=== PATIENT | female | born 1960 | race African-American/Black ===

== ENCOUNTER 2020-10-21 12:49 | Inpatient (IN) | payer OTHER, SELFPAY ==
[2020-10-21] VITALS (35 sets, daily range): BP systolic 107–132; BP diastolic 64–97; PULSE 71–97; RESP 15–37; TEMP 36.3–38.8; O2SAT 88–98; BMI 33.0
--- NOTE | ~2020-10-21 | CT_ITS ---
EXAMINATION: CTA chest PE protocol DATE: 10/21/2020 15:10 INDICATION: Shortness of breath, COVID 19 TECHNIQUE: Computed tomography angiography (CTA) of the chest was performed with 100 mL Omnipaque-350 intravenous contrast timed to evaluate the pulmonary arteries. Coronal maximum intensity projection 3D-reconstructions were created by the technologist. The dose-length product (DLP) was 710.56 mGy-cm. Automated exposure control and iterative reconstruction technique were employed. COMPARISON: None. FINDINGS: The pulmonary arteries are well-opacified. No pulmonary embolism is identified. There are w idespread groundglass opacities. No pleural effusion or pneumothorax is identified. There is mediasti nal and bilateral hilar lymphadenopathy. The heart size is normal. There is a partially imaged 1.3 cm cyst of the right kidney. There is moderate thoracic spondylosis. IMPRESSION: 1. CT findings consistent with COVID 19 pneumonia. 2. Mediastinal and bilateral hilar lymphadenopathy, likely reactive. 3. No pulmonary embolus. Reviewed, dictated and finalized at location A. MACHINIST
--- NOTE | ~2020-10-21 | XR_ITS ---
EXAMINATION: XR chest 1V portable EXAM DATE: 10/21/2020 13:40 INDICATION: COVID 19 positive. Low oxygen saturation. TECHNIQUE: Portable AP frontal chest x-ray was obtained. There is no prior study for comparison. FINDINGS: There is moderate amount of ill-defined airspace disease suspected, probably groundglass de nsity without dense confluent consolidation. Nonspecific but would be consistent with COVID pneumonia . Cardiomediastinal silhouette is normal. There is no pneumothorax suspected. There are no pleural effu sions. There are no osseous abnormalities identified. IMPRESSION: Moderate amount of ill-defined ground glass opacity, could be COVID pneumonia. Edema or other viral infectious process also possible. Reviewed, dictated and finalized at location A. OR QA ANALYST IMPRESSION: Moderate amount of ill-defined ground glass opacity, could be COVI D pneumonia. Edema or other viral infectious process also possible.
--- NOTE | 2020-10-21 13:07 | ECG_ITS ---
Measurements Intervals [place]ia Rate: 81 P: 45 MO: 158 QRS: 2 QRSD: 94 T: 37 QT: 345 QTc: 402 Interpretive Statements SINUS RHYTHM INCOMPLETE RIGHT BUNDLE BRANCH BLOCK BASELINE WANDER- V4 BORDERLINE ECG Electronically Signed On 10-21-2020 15:06:21 MILITARY TECHNICIAN by Deejay Delarosa D.O.
[2020-10-21 13:25] LABS: Alveolar/Arterial O2 Gradient 61.2 mmHg; Base Excess ABG 0.7 mEq/l (+/-2.0); Carboxyhemoglobin 1.1 % THb (0-2.0); Device ROOM AIR; Fractional Inspired Oxygen 21 %; HCO3 ABG 23.2 mEq/l (22.0-26.0); Methemoglobin ABG 0.2 %THb (0-1.5); Modified Allen's Test Pass; Oxygen Saturation ABG 89.1 % (95.0-100.0); PCO2 ABG 31.5 mmHg (35.0-45.0); PO2 ABG 50.8 mmHg (80.0-100.0); PO2 FiO2 Ratio Arterial Blood 2.42 %; Reduced Hemoglobin 12.7 %THb (0-5.0); Site Drawn RIGHT RADIAL; Total Hemoglobin 14.9 g/dL (12.0-18.0); pH ABG 7.485 (7.350-7.450)
[2020-10-21 13:27] LABS: Basophils Percent Auto 0.2 % (0.2-1.2); Hematocrit 44.6 % (37.0-47.0); Hemoglobin 14.6 g/dL (12.0-15.0); Immature Granulocyte Absolute 0.02 K/mm3 (0.00-0.031); Immature Granulocyte Percent A 0.5 % (0-0.5); Lymphocytes Absolute Auto 0.64 K/mm3 (0.9-3.2); Lymphocytes Percent Auto 14.6 % (18.3-44.2); Mean Corpuscular HGB Conc 32.7 g/dl (32-36); Mean Corpuscular Hemoglobin 28.1 pg (26-34); Mean Corpuscular Volume 85.9 fl (80-100); Monocytes Absolute Auto 0.2 K/mm3 (0.1-0.6); Monocytes Percent Auto 3.4 % (2.6-8.5); Neutrophils Absolute Auto 3.6 K/mm3 (1.3-6.7); Neutrophils Percent Auto 81.3 % (45.5-73.1); Platelet Count Result 228 k/mm3 (150-375); Red Blood Count 5.19 M/mm3 (4.2-5.4); Red Cell Distribution Width 14.1 % (11.5-14.5); White Blood Count 4.4 K/mm3 (4.5-10.0)
[2020-10-21 13:41] LABS: Alanine Aminotransferase 20 U/L (4-35); Albumin Level 3.4 g/dL (3.5-5.1); Alkaline Phosphatase 114 U/L (38-126); Anion Gap 5 mmol/L (8-16); Aspartate Amino Transferase 60 U/L (14-36); Bilirubin,Total 0.7 mg/dL (0.2-1.3); Blood Urea Nitrogen 16 mg/dL (7-17); Calcium 7.9 mg/dL (8.4-10.2); Carbon Dioxide 28 mmol/L (22-30); Chloride 106 mmol/L (98-107); Estimated CRCL calculation 94 ml/min; Estimated Glomerular Filt Rate > 60; Glucose 147 mg/dL (65-105); Potassium 3.8 mmol/L (3.4-5.0); Sodium 139 mmol/L (137-145)
[2020-10-21 13:42] LABS: D Dimer 1.42 ug/mL (<0.48)
[2020-10-21 13:52] LABS: Troponin I < 0.012 ng/mL (0.000-0.034)
--- NOTE | 2020-10-21 14:39 | ED.GENADULT ---
HPI - General Adult General Chief complaint: Weakness <Yunior Worthington PA-C - Last Filed: 10/21/20 16:09> Stated complaint: covid +, not getting better , weak <Yunior Worthington PA-C - Last Filed: 10/21/20 16:09> Time Seen by Provider: 10/21/20 12:54 <Yunior Worthington PA-C - Last Filed: 10/21/20 16:09> Source: patient <CITLALLI Tee Last Filed: 10/21/20 16:09> Mode of arrival: ambulatory <CITLALLI Tee Last Filed: 10/21/20 16:09> Limitations: no limitations <CITLALLI Tee Last Filed: 10/21/20 16:09> History of Present Illness HPI narrative: Patient presents with chief complaint of not feeling right over the past 2 to 3 days. Patient states that she has noticed some dizziness and fatigue. She denies chest pain or shortness of breath. She reports she has been exposed to Covid by a friend 2 weeks ago but has never been tested herself. She denies any fevers, chills, nausea, vomiting, diarrhea, abdominal pain, shortness of breath or chest pain. Patient is a smoker but denies COPD diagnosis. Patient states she has been able to eat and drink. She denies loss of taste or smell to her knowledge. <Yunior Worthington PA-C - Last Filed: 10/21/20 16:09> Related Data Home medications: Home Medications Medication Instructions Recorded Confirmed No Home Medications 10/21/20 10/21/20 <Yunior Worthington PA-C - Last Filed: 10/21/20 16:09> Allergies/adverse reactions: Allergies Allergy/AdvReac Type Severity Reaction Status Date / Time No Known Allergies Allergy Verified 10/21/20 17:53 <CITLALLI Tee Last Filed: 10/21/20 16:09> Review of Systems Review of Systems: Narrative: CONSTITUTIONAL: Reports fatigue denies fever, chills, or sweats. EYES: Denies visual changes, redness, or discharge. ENT: Denies rhinorrhea, congestion, sore throat, or otalgia. CARDIOVASCULAR: Denies chest pain, palpitations, or edema. RESPIRATORY: Denies cough or dyspnea. GASTROINTESTINAL: Denies abdominal pain, nausea, vomiting, or diarrhea. GENITOURINARY: Denies dysuria or hematuria. SKIN: Denies rash or itching. MUSCULOSKELETAL: Denies back pain, joint pain, or myalgia. NEUROLOGIC: Occasional dizziness denies headache, numbness, or weakness. PSYCHIATRIC: Denies anxiety or depression. <Yunior Worthington PA-C - Last Filed: 10/21/20 16:09> [facility] Family History Family History: Family History Sibling Diabetes mellitus Mother Diabetes mellitus <Yunior Worthington PA-C - Last Filed: 10/21/20 16:09> Social History Social History: Social History Smoking status: Former smoker Tobacco type: cigarettes Alcohol intake: never Substance use: never Gender identity (if verbalized by the patient): Female Sexual Orientation (if Verbalized by the Patient): Straight or Heterosexual Spiritual care concerns: Yes <Yunior Worthington PA-C - Last Filed: 10/21/20 16:09> Exam Narrative: Exam Narrative: GENERAL: Well-appearing, well-nourished, and in no acute distress. HEAD: Normocephalic, atraumatic. EYES: PERRLA and EOMI. NECK: Supple. ROM intact. CHEST: Decreased breath sounds bilateral lower bases. No respiratory distress. No wheezes rales or rhonchi. Oxygen saturation between 88 and 92% on room air. HEART: Regular rate and rhythm. No murmur heard. Normal peripheral pulses. ABDOMEN: Soft, nontender, nondistended, normal active bowel sounds. EXTREMITIES: Normal range of motion. No edema. No calf swelling, erythema, tightness. SKIN: Warm, dry, no rash. NEURO: No focal deficits. Alert and oriented x3. PSYCH: Normal mood and affect. <Yunior Worthington PA-C - Last Filed: 10/21/20 16:09> Course PLUG SHAPER HAND/PA Physician Supervision For this patient encounter, I reviewed the PLUG SHAPER HAND or PA documentation, treatment plan, and medical decision making; and I had [id number] time with this patient. Patient presente
--- NOTE | 2020-10-21 17:37 | ADMGEN ---
This patient, Betina Mai, was admitted to [facility] Surg Room 310-01. Patient/family oriented to hospital policies and general routines including ID bracelet, bed and alarms, visiting hours, pain management, procedures, bathroom and other care routines, personal items, smoking policy, room service/diet, and visiting hours. Information on how to activate the Rapid Response Team has been discussed. Patient/Family are encouraged to report perceived risks to care and to ask questions if they do not understand what they are told or what they should do.
--- NOTE | 2020-10-21 20:15 | PM.IMHP ---
H&P: HPI History of Present Illness Date/Time: 10/21/20 20:15 Chief Complaint: Generalized weakness. Narrative: This is a previously healthy 59-year-old female smoker who presented to the emergency department earlier today via private vehicle from home at the encouragement of her sons for evaluation of generalized weakness. She is not a great historian and is quite vague regarding her symptoms and the timeline in which she has not felt well. From what I can gather she has not been feeling well for at least 2 to 3 days however the triage nurse was told that she has had ?COVID symptoms? for the past 10 days. Apparently the patient's friend had COVID 2 weeks ago and she was exposed to him on multiple occasions while he was sick. In any regard she just has not been feeling well with generalized weakness, body aches, fatigue, decreased appetite, and decrease in taste. She also reports subjective fever and has been having sweats. Because she has ?continued to lay around? her son's made her come in for evaluation. She denies headache, sinus congestion, otalgia, odynophagia, chest pain, significant cough, shortness of breath, nausea, vomiting, and diarrhea. Review of Systems Review of Systems: Narrative: Twelve systems were reviewed with pertinent positives and negatives as per HPI. Except as documented, all other systems were reviewed and are negative. [facility] Past Medical History Medical History (Updated 10/21/20 @ 23:18 by Karol Marcelnio PA-C) Nicotine dependence Surgical History Surgical History (Updated 10/21/20 @ 23:14 by Karol Marcelino PA-C) History of tubal ligation Family History Family History Sibling Diabetes mellitus Mother Diabetes mellitus Social History Social History (Updated 10/21/20 @ 23:15 by Karol Marcelino PA-C) Social History: Surrogate decision maker: Martin Jones, zoya. Code status: Full code. Smoking packs per day: 0.5 Smoking cigarettes per day: 10.0 Smoking status: Current every day smoker Tobacco type: cigarettes Alcohol intake: never Substance use: never Additional living arrangements comments: The patient lives in [place]. Additional occupation/education comments: Currently laid off from [employer]. Gender identity (if verbalized by the patient): Female Sexual Orientation (if Verbalized by the Patient): Straight or Heterosexual Spiritual care concerns: Yes Meds Home Medications and Allergies Home Medications Medication Instructions Recorded Confirmed Type No Home Medications 10/21/20 10/21/20 History Allergies Allergy/AdvReac Type Severity Reaction Status Date / Time No Known Allergies Allergy Verified 10/21/20 17:53 Vital Signs Vital Signs - 24 hr 10/21/20 13:01 10/21/20 13:03 10/21/20 13:15 Temperature 97.4 F L Pulse Rate 85 96 89 Respiratory Rate 28 H 17 28 H Blood Pressure 122/75 Pulse Oximetry 90 88 L 90 Exam Narrative: Exam Narrative: General: Mildly ill-appearing female in the semi-Liu position in bed in no distress. Weight: 113.5 kilograms. BMI: 33.0. HEENT: PERRL, EOMI. Sclerae anicteric. Tacky mucous membranes. Neck: Supple. Respiratory: She is speaking in full sentences. Respirations are even and nonlabored. Bilateral coarse, scattered rhonchi. Cardiovascular: Regular rate and rhythm with S1-S2. Gastrointestinal: Abdomen is soft, nontender, and nondistended with positive bowel sounds. Skin: Warm and dry. No rash or lesions on limited exam. Extremities: No cyanosis, clubbing, or edema. Radial and pedal pulses intact. Neurological: Alert. Cranial nerves 2-12 are grossly intact. No gross focal deficits to casual conversation. Psychiatric: Normal mood and flat affect. H&P: Results Labs Labs: Short CBC 10/21/20 Range/Units 13:20 WBC 4.4 L (4.5-10.0) K/mm3 Hgb 14.6 (12.0-15.0) g/dL Hct 44.6 (37.0-47.0)
[2020-10-21] MEDS: ACETAMINOPHEN 325 MG TABLET 650 MG PO (20:42)
[2020-10-22] VITALS (12 sets, daily range): BP systolic 98–109; BP diastolic 47–79; PULSE 63–77; RESP 16–20; TEMP 36.4–37.4; O2SAT 90–97
[2020-10-22 06:05] LABS: Hematocrit 43.3 % (37.0-47.0); Hemoglobin 13.8 g/dL (12.0-15.0); Mean Corpuscular HGB Conc 31.9 g/dl (32-36); Mean Corpuscular Hemoglobin 27.9 pg (26-34); Mean Corpuscular Volume 87.5 fl (80-100); Mean Platelet Volume 10.8 fl (7.4-10.4); Platelet Count Result 226 k/mm3 (150-375); Red Blood Count 4.95 M/mm3 (4.2-5.4); Red Cell Distribution Width 14.2 % (11.5-14.5)
[2020-10-22 06:29] LABS: Alanine Aminotransferase 20 U/L (4-35); Albumin Level 3.1 g/dL (3.5-5.1); Alkaline Phosphatase 101 U/L (38-126); Anion Gap 2 mmol/L (8-16); Aspartate Amino Transferase 62 U/L (14-36); Bilirubin,Total 0.5 mg/dL (0.2-1.3); Blood Urea Nitrogen 16 mg/dL (7-17); CRP 5.9 mg/dL (<1.0); Calcium 7.8 mg/dL (8.4-10.2); Carbon Dioxide 33 mmol/L (22-30); Chloride 101 mmol/L (98-107); Estimated CRCL calculation 95 ml/min; Estimated Glomerular Filt Rate > 60; Glucose 113 mg/dL (65-105); Lactate Dehydrogenase 1701 U/L (313-618); Magnesium 2.4 mg/dL (1.6-2.3); Potassium 3.6 mmol/L (3.4-5.0); Sodium 136 mmol/L (137-145)
[2020-10-22] MEDS: ENOXAPARIN 40 MG/0.4 ML SYRINGE SUB-Q (09:00)
--- NOTE | 2020-10-22 15:15 | PM.IMPN ---
Progress Note: A&P Assessment and Plan (1) Bilateral pneumonia: Code(s): J18.9 - Pneumonia, unspecified organism Status: Acute Assessment and Plan: Suspect COVID-19 -will continue ceftriaxone and azithromycin until PCR comes back -patient is outside the window for Remdesivir and Decadron and these would provided little benefit -she is 93% on 2 L and I am going to wean the oxygen -obtain sputum culture (2) Acute respiratory failure with hypoxemia: Code(s): J96.01 - Acute respiratory failure with hypoxia Status: Acute Assessment and Plan: As above -wean oxygen as tolerated (3) Person under investigation for COVID-19: Code(s): Z20.822 - Contact with and (suspected) exposure to COVID-19 Status: Acute Assessment and Plan: Await PCR (4) Nicotine dependence: Code(s): F17.200 - Nicotine dependence, unspecified, uncomplicated Status: Acute Assessment and Plan: Support provided Time Spent With Patient Time with patient: 25 - 35 minutes Subjective Date/time seen: 10/22/20 15:15 Interval history: Pt is a 59-year-old female here for suspected COVID. Patient seen today and states she feels okay. Pt denies nausea, vomiting, fevers, chills, constipation, diarrhea, chest pain, sob (at rest or with walking), or abdominal pain. She says she can taste and smell just fine. She says she is coughing a little bit but overall doing okay. She wants to go home. Review of Systems Review of Systems: All systems reviewed & are unremarkable except as noted in HPI and below Exam Narrative: Exam Narrative: General: Well developed well nourished patient in NAD HEENT: normocephalic Neck: supple Neuro: Alert and oriented x4 CV:RRR Resp: Crackles in the bases bilaterally. No conversational dyspnea. 2 L of oxygen applied Abd: Soft, non distended. No pain to palpation. Positive bowel sounds Extremities: No swelling, erythema, or pain to palpation. Objective Data Vital Signs Vital Signs: Vital Signs - 24 hr 10/21/20 15:30 10/21/20 15:45 10/21/20 16:00 Temperature Pulse Rate 75 80 72 Respiratory Rate 15 26 H 25 H Blood Pressure 132/64 Pulse Oximetry 90 93 91 10/21/20 16:05 10/21/20 16:15 10/21/20 16:16 Temperature Pulse Rate 76 74 78 Respiratory Rate 27 H 31 H 35 H Blood Pressure 122/97 H 118/69 Pulse Oximetry 91 90 88 L 10/21/20 16:30 10/21/20 16:31 10/21/20 17:38 Temperature 98.2 F Pulse Rate 71 74 77 Respiratory Rate 32 H 30 H 20 Blood Pressure 122/68 109/70 Pulse Oximetry 90 90 98 10/21/20 17:56 10/21/20 20:00 10/21/20 20:42 Temperature 101.8 F H 101.8 F H Pulse Rate 77 77 Respiratory Rate 20 20 Blood Pressure 114/66 Pulse Oximetry 98 92 10/21/20 22:00 10/21/20 22:14 10/22/20 00:00 Temperature 100.9 F H 100.9 F H 99.4 F Pulse Rate 77 Respiratory Rate 20 Blood Pressure 105/59 L Pulse Oximetry 92 10/22/20 04:00 10/22/20 08:00 10/22/20 12:00 Temperature 98.3 F 97.6 F 97.8 F Pulse Rate 69 72 70 Respiratory Rate 20 18 18 Blood Pressure 102/47 L 105/67 104/59 L Pulse Oximetry 91 94 93 Intake/Output Intake/Output: Intake & Output 10/19/20 10/20/20 10/21/20 10/22/20 23:59 23:59 23:59 23:59 Intake Total 800 Output Total 100 Balance 700 Meds/Results Medications: Active Medications Generic Name Dose Route Start Last Admin Trade Name Ianq PRN Reason Stop Dose Admin Acetaminophen 650 mg 10/21/20 20:16 10/21/20 20:42 Acetaminophen 325 Mg Tablet PO 650 mg Q6H PRN Administration Mild Pain (1-3) or Fever Albuterol 2 puff 10/21/20 23:21 Albuterol Sulfate (*Sp) Aerosol 1 Puff INHALATION QIDRT PRN Shortness Of Breath Enoxaparin Sodium 40 mg 10/22/20 09:00 Enoxaparin 40 Mg/0.4 Ml Syringe SUB-Q DAILY ESTHER Ceftriaxone Sodium/Dextrose 1 gm in 50 mls @ 100 mls/hr 10/21/20 23:25 10/22/20 01:25 Rocephin 1 Gm/
[2020-10-23] VITALS (11 sets, daily range): BP systolic 99–112; BP diastolic 61–75; PULSE 53–82; RESP 16–20; TEMP 36.3–37.1; O2SAT 85–96
[2020-10-23 06:23] LABS: Alanine Aminotransferase 18 U/L (4-35); Alkaline Phosphatase 100 U/L (38-126); Anion Gap 2 mmol/L (8-16); Aspartate Amino Transferase 51 U/L (14-36); Bilirubin,Total 0.5 mg/dL (0.2-1.3); Blood Urea Nitrogen 14 mg/dL (7-17); CRP 6.8 mg/dL (<1.0); Calcium 7.7 mg/dL (8.4-10.2); Carbon Dioxide 33 mmol/L (22-30); Chloride 101 mmol/L (98-107); Estimated CRCL calculation 108 ml/min; Estimated Glomerular Filt Rate > 60; Glucose 106 mg/dL (65-105); Potassium 3.6 mmol/L (3.4-5.0); Sodium 136 mmol/L (137-145)
[2020-10-23 06:49] LABS: Hematocrit 41.7 % (37.0-47.0); Hemoglobin 13.6 g/dL (12.0-15.0); Mean Corpuscular HGB Conc 32.6 g/dl (32-36); Mean Corpuscular Hemoglobin 28.4 pg (26-34); Mean Corpuscular Volume 87.1 fl (80-100); Mean Platelet Volume 11.3 fl (7.4-10.4); Platelet Count Result 275 k/mm3 (150-375); Red Blood Count 4.79 M/mm3 (4.2-5.4)
--- NOTE | 2020-10-23 10:56 | HOMEO2EVAL ---
Home Oxygen Evaluation RC: Home Oxygen (O2) Evaluation Start: 10/23/20 06:44 Freq: ONCE Status: Active Protocol: RPE Activity Type Activity Date Activity User E-Sign Co-Sign Detail Recorded Client Recorded Date Recorded By Document 10/23/20 10:30 HENRIQUE [id number] 10/23/20 10:56 HENRIQUE Document 10/23/20 10:31 HENRIQUE [email or web address] 10/23/20 10:56 HENRIQUE Document 10/23/20 10:32 HENRIQUE [email or web address] 10/23/20 10:56 HENRIQUE Document 10/23/20 10:34 HENRIQUE [email or web address] 10/23/20 10:56 HENRIQUE Document 10/23/20 10:40 HENRIQUE [id number] 10/23/20 10:56 HENRIQUE 10/23/20 10/23/20 10/23/20 10:30 10:31 10:32 Home O2 Evaluation Test Phase Resting Resting Resting Oxygen Delivery Room Air Nasal Cannula Nasal Cannula Oxygen Flow Rate (L/min) 1 2 Pulse Oximetry (90-100 %) 85 L 86 L 94 Pulse Rate (60-100 beats/min) 82 Home Oxygen Evaluation Comments Treatment Charges O2 Evaluation - Inpatient 10/23/20 10/23/20 10:34 10:40 Home O2 Evaluation Test Phase Exercise Resting Oxygen Delivery Nasal Cannula Nasal Cannula Oxygen Flow Rate (L/min) 2 2 Pulse Oximetry (90-100 %) 89 L 93 Pulse Rate (60-100 beats/min) Home Oxygen Evaluation Comments PT REQUIRES 2 L WITH REST AND ACTIVITY Treatment Charges
--- NOTE | 2020-10-23 11:36 | PCRTNOTE ---
Pt. requires home oxygen 2lpm at rest and with activity. Set pt. up with [facility]. Pt. has no preference in DME choice. Tank in the room and RN and provider aware.
--- NOTE | 2020-10-23 17:06 | PM.IMPN ---
Progress Note: A&P Assessment and Plan (1) Bilateral pneumonia: Code(s): J18.9 - Pneumonia, unspecified organism Status: Acute Assessment and Plan: Suspect COVID-19 -will continue ceftriaxone and azithromycin until PCR comes back -patient is outside the window for Remdesivir and Decadron and these would provided little benefit -home oxygen evaluation today showed a need of 2 L at rest and activity -obtain sputum culture (2) Acute respiratory failure with hypoxemia: Code(s): J96.01 - Acute respiratory failure with hypoxia Status: Acute Assessment and Plan: As above -wean oxygen as tolerated (3) Person under investigation for COVID-19: Code(s): Z20.822 - Contact with and (suspected) exposure to COVID-19 Status: Acute Assessment and Plan: Await PCR (4) Nicotine dependence: Code(s): F17.200 - Nicotine dependence, unspecified, uncomplicated Status: Acute Assessment and Plan: Support provided (5) Transaminitis: Code(s): R74.01 - Elevation of levels of liver transaminase levels Status: Acute Assessment and Plan: Likely due to probable COVID-19 -improving Subjective Date/time seen: 10/23/20 17:06 Interval history: Pt is a 59-year-old female here for suspected COVID. Patient seen today and states she feels okay. Pt denies nausea, vomiting, fevers, chills, constipation, diarrhea, chest pain, sob (at rest or with walking), or abdominal pain. She says she can taste and smell just fine. She really wants to go home and is upset that she is unable to go today. Exam Narrative: Exam Narrative: General: Well developed well nourished patient in NAD HEENT: normocephalic Neck: supple Neuro: Alert and oriented x4 CV:RRR Resp: Crackles in the bases bilaterally. No conversational dyspnea. 2 L of oxygen applied Abd: Soft, non distended. No pain to palpation. Positive bowel sounds Extremities: No swelling, erythema, or pain to palpation. Objective Data Vital Signs Vital Signs: Vital Signs - 24 hr 10/22/20 20:00 10/22/20 20:50 10/22/20 23:44 Temperature 99.1 F Pulse Rate 73 70 Respiratory Rate 20 16 Blood Pressure 103/79 Pulse Oximetry 92 90 96 10/22/20 23:55 10/23/20 04:00 10/23/20 08:00 Temperature 98.6 F 98.1 F 97.8 F Pulse Rate 63 65 53 L Respiratory Rate 18 20 16 Blood Pressure 98/56 L 112/68 99/61 L Pulse Oximetry 96 96 91 10/23/20 10:30 10/23/20 10:31 10/23/20 10:32 Temperature Pulse Rate 82 Respiratory Rate Blood Pressure Pulse Oximetry 85 L 86 L 94 10/23/20 10:34 10/23/20 10:40 10/23/20 12:00 Temperature 98.8 F Pulse Rate 82 Respiratory Rate 18 Blood Pressure 105/68 Pulse Oximetry 89 L 93 95 10/23/20 16:00 Temperature 98.7 F Pulse Rate 64 Respiratory Rate 16 Blood Pressure 107/67 Pulse Oximetry 96 Intake/Output Intake/Output: Intake & Output 10/20/20 10/21/20 10/22/20 10/23/20 23:59 23:59 23:59 23:59 Intake Total 1650 620 Output Total 100 300 Balance 1550 320 Meds/Results Medications: Active Medications Generic Name Dose Route Start Last Admin Trade Name Freq PRN Reason Stop Dose Admin Acetaminophen 650 mg 10/21/20 20:16 10/21/20 20:42 Acetaminophen 325 Mg Tablet PO 650 mg Q6H PRN Administration Mild Pain (1-3) or Fever Albuterol 2 puff 10/21/20 23:21 Albuterol Sulfate (*Sp) Aerosol 1 Puff INHALATION QIDRT PRN Shortness Of Breath Enoxaparin Sodium 40 mg 10/22/20 09:00 10/22/20 09:00 Enoxaparin 40 Mg/0.4 Ml Syringe SUB-Q 40 mg DAILY ESTHER Administration Ceftriaxone Sodium/Dextrose 1 gm in 50 mls @ 100 mls/hr 10/21/20 23:25 10/22/20 21:03 Rocephin 1 Gm/D5w 50 Ml IVPB Infused DAILY@2100 ESTHER Infusion Azithromycin 500 mg in 250 mls @ 250 mls/hr 10/21/20 23:25 10/22/20 22:15 Zithromax IVPB Infused DAILY@2200 ESTHER Infusion Radiology Results
[2020-10-23] MEDS: ENOXAPARIN 40 MG/0.4 ML SYRINGE SUB-Q (17:31)
[2020-10-23 18:03] LABS: SARS-CoV-2 RNA PCR Negative
[2020-10-23 20:10] LABS: Influenza Control Positive
[2020-10-24 05:35] VITALS: BP 106/61; PULSE 51; RESP 20; TEMP 36.9; O2SAT 97
[2020-10-24 06:46] LABS: HIV 1/2 Ab P24 Ag Result Negative (Negative)
[2020-10-24 08:00] VITALS: O2SAT 91
[2020-10-24 10:02] VITALS: PULSE 73; RESP 18; O2SAT 93
--- NOTE | 2020-10-24 11:40 | PC.NURSE ---
Pt very anxious this morning. As her RN the past two days, I have observed her lacking motivation to reposition. Pt continually states she just wants to go home. Pt refused medication this AM and flu shot at discharge. Yell pt telling PA that she does not the medicine if she has the oxygen. Educated pt on importance of abx to treat the infection and oxygen to help her breathe effectively. Educated pt importance of 02>90, following up with primary care doctor to discuss stopping oxygen, monitoring SOB, etc. Pt simply nodded head and said she hasn't need a doctor for 30 years.
--- NOTE | 2020-10-24 17:50 | PM.DS ---
DS: Admitting Diagnosis Admitting Diagnosis Admitting Diagnosis: Pneumonia DS: Discharge Diagnosis Discharge Diagnosis (1) Bilateral pneumonia: Code(s): J18.9 - Pneumonia, unspecified organism Status: Acute Assessment and Plan: Date of Admission 10/21/20 Date of Discharge 10/24/20 Ms. Mai is a previously healthy 59yo female smoker who presented to the ED for evaluation of generalized weakness and fatigue. She described being exposed to a COIVD positive friend two weeks ago but was never tested herself. Chest XR was consistent with bilateral pneumonia. She was treated with IV azithromycin and rocephin, COVID-19 testing negative, Flu negative. She was hypoxic requiring up to 2L/min supplemental oxygen. Home oxygen evaluation shows she needs 2L/min O2 at rest and with activity. Patient continues to be aggressive with staff and declining further treatment, demanding to leave. At this point I feel it is safest to discharge patient with the appropriate treatment including home oxygen set up and oral antibiotics, albuterol although it is explained at length to patient that she would be safest staying for closer observation. She declines and requests discharge. She is encouraged to wear her oxygen, quit smoking, and follow up with PCP soon. She is educated on worrisome signs/symptoms to return to ER for. Patient is discharged 10/24/20 (2) Acute respiratory failure with hypoxemia: Code(s): J96.01 - Acute respiratory failure with hypoxia Status: Acute Assessment and Plan: See above, home O2 set up. (3) Person under investigation for COVID-19: Code(s): Z20.822 - Contact with and (suspected) exposure to COVID-19 Status: Acute Assessment and Plan: COVID negative by PCR 10/21/20. Treat for bacterial pneumonia with continued antibiotics. (4) Nicotine dependence: Code(s): F17.200 - Nicotine dependence, unspecified, uncomplicated Status: Acute Assessment and Plan: Smoking cessation encouraged. (5) Transaminitis: Code(s): R74.01 - Elevation of levels of liver transaminase levels Status: Acute Assessment and Plan: Mild and improving. May be related to acute illness. DS: Summary Hospital Course Hospital Course: See above Time Spent with Patient Time attestation: Total time spent providing and/or coordinating discharge services: 35 minutes Exam Narrative: Exam Narrative: General: Well developed well nourished patient in NAD HEENT: normocephalic Neck: supple Neuro: Alert and oriented x4 CV:RRR Resp: Crackles in the bases bilaterally. No conversational dyspnea. 2 L of oxygen applied Abd: Soft, non distended. No pain to palpation. Positive bowel sounds Extremities: No swelling, erythema, or pain to palpation. DS: Data Data Completed and Pending Labs on day of discharge: Labs from last 24 hours 10/24/20 10/23/20 10/21/20 05:28 19:45 16:07 HIV 1&2 Ab/P24 Ag 4thGn Negative Influenza Types A,B Ag Negative SARS-CoV-2 RNA (RT-PCR) Negative Last Vital Signs Temp 98.4 F 10/24/20 05:35 Pulse 73 10/24/20 10:02 Resp 18 10/24/20 10:02 BP 106/61 10/24/20 05:35 Pulse Ox 93 10/24/20 10:02 ITS Impressions Chest X-Ray 10/21/20 13:47 IMPRESSION: Moderate amount of ill-defined ground glass opacity, could be COVID pneumonia. Edema or other viral infectious process also possible. Chest CTA 10/21/20 15:27 IMPRESSION: 1. CT findings consistent with COVID 19 pneumonia. 2. Mediastinal and bilateral hilar lymphadenopathy, likely reactive. 3. No pulmonary embolus. Laboratory Tests 10/23/20 05:28 10/23/20 05:28 Discharge Plan Discharge Attending physician on discharge: Madisyn Eddy
== END 2020-10-24 13:10 | disposition home or self-care (01) | DRG 139 ==
LOC: ANHED 16:11 → ANH3MEDSUR 23:27
PROVIDERS: Physician Assistant; Admitting Provider Internal Medicine; Emergency Provider General Practice; Visit Provider Physician Assistant
DX: J18.9 Pneumonia, unspecified organism (principal); J96.01 Acute respiratory failure with hypoxia; Z20.822 Contact with and (suspected) exposure to COVID-19; F17.210 Nicotine dependence, cigarettes, uncomplicated; R74.01 Elevation of levels of liver transaminase levels
CPT/HCPCS: 36415; 36600; 71045; 71275; 80048; 80053; 80076; 82375; 82728; 82805; 83050; 83615; 83735; 84484; 85025; 85027; 85380; 86140; 86703; 87804; 93005; 94618; 97161; 97165; 99285; A9270; C9803; G0378; G0432; J0456; J0696; J1650; Q9967; U0003; U0005